=== PATIENT | female | born 1990 | race Caucasian/White ===

== ENCOUNTER 2016-08-19 21:18 | Emergency (ER) | payer OTHER ==
--- NOTE | 2016-08-19 21:56 | ED ---
ENT HPI - General Chief complaint: Dental/Oral Stated complaint: dental pain Time Seen by Provider: 08/19/16 21:43 Source: RN notes reviewed, old records reviewed - History of Present Illness Initial comments: This is a 26 year old female with CC of chronic right lower dental pain. PAtient states that she has multiple dental caries, and problems with tooth 30 frequently. She reports over the past 6 months she has been off and on antibiotics for dental abscess, and reports she plans to get her tooth removed when she can afford it. She reports this pain has been worse for the past day at work. She tried oragel, and taking motrin. Little relief of pain. Denies fever, chills, or inability to open or close jaw, chest pain, dysphagia, shortness of breath, nausea, vomting, abdominal pain, neck pain. - Related Data Home Medications Medication Instructions Recorded Confirmed Ibuprofen [Motrin] 600 mg PO Q8HR PRN 08/19/16 08/19/16 Previous Rx's Medication Instructions Recorded HYDROcodone/APAP 5-325MG [[place] 1 tab PO Q6HR PRN #12 tab 08/19/16 5-325] Penicillin V Potassium [Pen Vee K] 500 mg PO QID #40 tab 08/19/16 Allergies Allergy/AdvReac Type Severity Reaction Status Date / Time No Known Allergies Allergy Verified 08/19/16 21:58 Review of Systems ROS Statement: Those systems with pertinent positive or pertinent negative responses have been documented in the HPI. ROS Other: All systems not noted in ROS Statement are negative. Past Medical History Past Medical History: No Reported History History of Any Multi-Drug Resistant Organisms: MRSA Date of last positivie culture/infection: 2010 MDRO Source:: buttocks Past Surgical History: No Surgical Hx Reported Past Psychological History: Anxiety, Depression Smoking Status: Current every day smoker Past Alcohol Use History: Occasional General Exam - General Exam Comments Initial Comments: Frank 26 year old female, no distress. General appearance: alert, in no apparent distress Head exam: Present: atraumatic, normocephalic, normal inspection Eye exam: Present: normal appearance, PERRL, EOMI. Absent: scleral icterus, conjunctival injection, periorbital swelling ENT exam: Present: normal exam, mucous membranes moist. Absent: normal oropharynx (dental carries, chipped tooth 30) Neck exam: Present: normal inspection. Absent: tenderness, meningismus, lymphadenopathy Respiratory exam: Present: normal lung sounds bilaterally. Absent: respiratory distress, wheezes, rales, rhonchi, stridor Cardiovascular Exam: Present: regular rate, normal rhythm, normal heart sounds. Absent: systolic murmur, diastolic murmur, rubs, gallop, clicks GI/Abdominal exam: Present: soft, normal bowel sounds. Absent: distended, tenderness, guarding, rebound, rigid Extremities exam: Present: normal inspection, full ROM, normal capillary refill. Absent: tenderness, pedal edema, joint swelling, calf tenderness Back exam: Present: normal inspection Neurological exam: Present: alert, oriented X3, CN II-XII intact Psychiatric exam: Present: normal affect, normal mood Skin exam: Present: warm, dry, intact, normal color. Absent: rash Course Vital Signs 08/19/16 21:55 Temperature 98.2 F Pulse Rate 89 Respiratory 20 Rate Blood Pressure 120/68 O2 Sat by Pulse 99 Oximetry Medical Decision Making - Medical Decision Making This is a 26 year old female with CC of chronic right lower dental pain. PAtient states that she has multiple dental caries, and problems with tooth 30 frequently. She reports over the past 6 months she has been off and on antibiotics for dental abscess, and reports she plans to get her tooth removed when she can afford it. She reports this pain has been worse for the past day at work. She tried oragel, and taking motrin. Little relief of pain. Denies fever, chills, or inability to open or close jaw, chest pain, dysphagia, shortness of breath, nausea, vomting, abdominal pain, neck pain. Patient has inflammed gums and chipped tooth 30. Multiple dental caries. Patient given referral for dentist, and given PenVK and pain medication. Advised importance of follow up, patient understands treatment plan and will comply. Disposition Clinical Impression: Pain, dental Disposition: HOME SELF-CARE Condition: Good Instructions: Dental Abscess (ED) Additional Instructions: [facility] [id number] , [place] [address] [phone] (existing clients only) For new clients: [phone] 1st consult: $50 (includes Xrays) Usually 30% less then private dentist for visits after. [employer] [facility] [employer] Have to pay $50 for Xrays anmd rest is covered. [phone] Prescriptions: HYDROcodone/APAP 5-325MG [[place] 5-325] 1 tab PO Q6HR PRN #12 tab PRN Reason: Pain Penicillin V Potassium [Pen Vee K] 500 mg PO QID #40 tab Referrals: Torey Alejo MD [Primary Care Provider] - 1-2 days Time of Disposition: 21:55
[2016-08-19 21:58] VITALS: BP 120/68; PULSE 89; RESP 20; TEMP 98.2
== END 2016-08-19 22:05 | disposition home or self-care (01) ==
LOC: EC 21:18
DX: K08.89 Other specified disorders of teeth and supporting structures (principal); F17.200 Nicotine dependence, unspecified, uncomplicated
CPT/HCPCS: 99282

== ENCOUNTER 2017-07-28 10:05 | Emergency (ER) | payer OTHER ==
[2017-07-28 10:33] VITALS: BP 120/72; PULSE 78; RESP 18; TEMP 98.2
[2017-07-28] MEDS ORDERED: PENICILLIN VK 500MG STARTER 4 TAB BTL PO STA (10:46)
[2017-07-28] MEDS ORDERED: HYDROcodone/APAP 7.5-325MG 1 EACH TAB PO ONE (10:46)
--- NOTE | 2017-07-28 10:48 | ED ---
ENT HPI - General Chief complaint: Dental/Oral Stated complaint: Broken tooth Time Seen by Provider: 07/28/17 10:44 Source: patient, RN notes reviewed Mode of arrival: ambulatory Limitations: no limitations - History of Present Illness Initial comments: 27-year-old female presents emergency Department with chief complaint of dental pain. Patient states she's had a bad tooth that she is known about states that she's had some discomfort has been controlled with Tylenol Motrin up until last night she's had severe left lower throbbing pain. Patient reports no fever no chills mild facial swelling. She has an appointment in 10 days with oral surgery. Patient denies any known ALLERGIES. Denies any sore throat difficulty swallowing. - Related Data Home Medications Medication Instructions Recorded Confirmed Ibuprofen [Motrin] 600 mg PO Q8HR PRN 08/19/16 08/19/16 Previous Rx's Medication Instructions Recorded HYDROcodone/APAP 5-325MG [[place] 1 tab PO Q6HR PRN #12 tab 08/19/16 5-325] Penicillin V Potassium [Pen Vee K] 500 mg PO QID #40 tab 08/19/16 Hydrocodone/Acetaminophen [[place] 1 tab PO Q6HR PRN #12 tab 07/28/17 5-325] Ibuprofen [Motrin] 600 mg PO Q8HR PRN #30 tab 07/28/17 Penicillin V Potassium [Pen Vee K] 500 mg PO QID #40 tablet 07/28/17 Allergies Allergy/AdvReac Type Severity Reaction Status Date / Time No Known Allergies Allergy Verified 08/19/16 21:58 Review of Systems ROS Statement: Those systems with pertinent positive or pertinent negative responses have been documented in the HPI. ROS Other: All systems not noted in ROS Statement are negative. Past Medical History Past Medical History: No Reported History History of Any Multi-Drug Resistant Organisms: MRSA Date of last positivie culture/infection: 2010 MDRO Source:: buttocks Past Surgical History: No Surgical Hx Reported Past Psychological History: Anxiety, Depression Smoking Status: Current every day smoker Past Alcohol Use History: Occasional General Exam Limitations: no limitations General appearance: alert, in no apparent distress Head exam: Present: atraumatic, normocephalic, normal inspection Eye exam: Present: normal appearance, PERRL, EOMI. Absent: scleral icterus, conjunctival injection, periorbital swelling ENT exam: Present: mucous membranes moist, TM's normal bilaterally, normal external ear exam. Absent: normal oropharynx (Dental fracture left lower no drainable abscess) Neck exam: Present: normal inspection, full ROM. Absent: tenderness, meningismus, lymphadenopathy Respiratory exam: Present: normal lung sounds bilaterally. Absent: respiratory distress, wheezes, rales, rhonchi, stridor Cardiovascular Exam: Present: regular rate, normal rhythm, normal heart sounds. Absent: systolic murmur, diastolic murmur, rubs, gallop, clicks Course Vital Signs 07/28/17 10:23 Temperature 98.2 F Pulse Rate 78 Respiratory 18 Rate Blood Pressure 120/72 O2 Sat by Pulse 100 Oximetry Medical Decision Making - Medical Decision Making 27-year-old female presented for dental pain. Patient has no dental abscess though she's had increased pain concern for dental infection. She has an appointment with oral surgery. She'll be given pain medication, antibiotics she is advised to have recheck in 48 hours or return for any worsening symptoms. Disposition Clinical Impression: Fracture of tooth, Toothache Disposition: HOME SELF-CARE Condition: Stable Instructions: Toothache (ED) Additional Instructions: Please return to the Emergency Department if symptoms worsen or any other concerns. Prescriptions: Hydrocodone/Acetaminophen [[place] 5-325] 1 tab PO Q6HR PRN #12 tab PRN Reason: Pain Ibuprofen [Motrin] 600 mg PO Q8HR PRN #30 tab PRN Reason: Pain Penicillin V Potassium [Pen Vee K] 500 mg PO QID #40 tablet Is patient prescribed a controlled substance at d/c from ED?: Yes If prescribed controlled substance>3 days was MAPS reviewed?: No When asked, does pt state using other controlled substances?: No Referrals: Torey Alejo MD [Primary Care Provider] - 1-2 days Time of Disposition: 10:48
== END 2017-07-28 11:10 | disposition home or self-care (01) ==
LOC: EC 10:05
DX: S02.5XXA Fracture of tooth (traumatic), initial encounter for closed fracture (principal); F17.200 Nicotine dependence, unspecified, uncomplicated; Z86.14 Personal history of Methicillin resistant Staphylococcus aureus infection; X58.XXXA Exposure to other specified factors, initial encounter
CPT/HCPCS: 99283

== ENCOUNTER 2018-08-27 22:00 | Outpatient (CLI) | payer OTHER ==
[2018-08-27 22:38] LABS: Appearance,Urine Cloudy (Clear); Bilirubin,Urine Negative (Negative); Blood,Urine Negative (Negative); Color,Urine Yellow; Glucose,Urine (UA) Negative (Negative); Ketones,Urine 1+ (Negative); Leukocyte Esterase,Urine Negative (Negative); Mucus,Urine Many /hpf; Nitrite,Urine Negative (Negative); Protein,Urine 1+ (Negative); RBC,Urine 6 /hpf (0-5); Specific Gravity,Urine 1.031 (1.001-1.035); Squamous Epithelial Cell,Urine 5 /hpf (0-4); WBC,Urine 4 /hpf (0-5)
[2018-08-27 22:57] VITALS: BP 125/71; PULSE 87; RESP 18; TEMP 97.1
--- NOTE | 2018-08-31 16:05 | P.MSEPDOC ---
Presenting Problems - Arrival Data Date of Arrival on Unit: 08/27/18 Time of Arrival on Unit: 22:00 Mode of Transport: Ambulatory - Complaint OB-Reason for Admission/Chief Complaint: Pain Comment: Pt complains of abdominal pain/tightness and vaginal pressure/shooting vaginal pain. Pt rates it 06/25. Medical History - Information : 4 Para: 2 Term: 2 : 0 Abortions: Spontaneous or Elective: 1 Number of Living Children: 2 - Gestational Age Gestational Age by SABRA (wks/days): 22 Weeks and 5 Days - History Comment: EIF on left ventricle on first US. high risk US did not see EIF. Review of Systems - Review of Systems Constitutional: No problems Breast: No problems ENT: No problems Cardiovascular: No problems Respiratory: No problems Gastrointestinal: No problems Genitourinary: No problems Musculoskeletal: No problems Neurological: No problems Skin: No problems Vital Signs - Temperature Temperature: 97.1 F Temperature Source: Temporal Artery Scan - Pulse Right Pulse Oximetery Pulse Rate: 87 Pulse Assessment Method: Automatic Cuff - Respirations Respiratory Rate: 18 Oxygen Delivery Method: Room Air O2 Sat by Pulse Oximetry: 100 - Blood Pressure Right Arm Blood Pressure: 125/71 Blood Pressure Mean: 89 Blood Pressure Source: Automatic Cuff Medical Screen Scoring (Pre) - Cervical Exam Dilation: Exam Deferred Effacement: Exam Deferred Membranes: Intact - Uterine Contractions Frequency: N/A Duration: N/A Intensity: N/A - Maternal Vital Signs Maternal Temperature: N/A Maternal Blood Pressure: N/A Signs of Preeclampsia: N/A Maternal Respirations: N/A - Assessment - Baby A Baseline FHR: 145 Heart Rate - NICHD Category: Category I (Normal) = 0 Position: N/A Station: N/A - Total Score - Baby A Total Score - Baby A: 0 - Total Score - Baby B Total Score - Baby B: 0 - Total Score - Baby C Total Score - Baby C: 0 - Level of Risk - Baby A Level of Risk - Baby A: Low (0-5) - Level of Risk - Baby B Level of Risk - Baby B: Low (0-5) - Level of Risk - Baby C Level of Risk - Baby C: Low (0-5) Physician Notification (Pre) - Physician Notified Physician Notified Date: 08/27/18 Physician Notified Time: 22:46 Physician/Practitioner Notifed:: Juan Spoke With: Juan New Order Received: Yes (discharge pt with instructions to increase water intake) Disposition - Disposition OB Disposition: Discharge to home Discharge Date: 08/27/18 Discharge Time: 22:52 I agree with the RN Medical Screening Exam: Yes Risk & Benefit of care provided described in d/c instruction: Yes Diagnosis: FALSE LABOR BEFORE 37 COMPLETED WEEKS OF GEST, SECOND TRI
== END 2018-08-27 22:52 | disposition home or self-care (01) ==
LOC: FBPOP 22:00
PROVIDERS: ATTEND Obstetrics & Gynecology
DX: O47.02 False labor before 37 completed weeks of gestation, second trimester (principal); Z3A.22 22 weeks gestation of pregnancy
CPT/HCPCS: 81001; G0463; 99213

== ENCOUNTER 2021-11-25 11:16 | Inpatient (IN) | payer MEDICAID, OTHER ==
--- NOTE | 2021-11-25 14:50 | ED ---
Psych HPI - General Chief Complaint: Psychiatric Symptoms Stated Complaint: mental health Time Seen by Provider: 11/25/21 12:23 Source: patient, RN notes reviewed Mode of arrival: ambulatory Limitations: no limitations - History of Present Illness Initial Comments: This a 31-year-old female presents emergency Department chief complaint of depression. Patient states that she was intoxicated while taking care of her kids other morning. Patient states that she is overwhelmed with stress, depression that she is advised to come evaluated and treated by her CPS worker. Patient denies illicit drug use does admit to occasional alcohol use denies a physical complaints no recent medication changes. - Related Data Home Medications Medication Instructions Recorded Confirmed Pnv No.95/Ferrous Fum/Folic AC 1 each PO DAILY 08/27/18 08/27/18 [ Multivitamin Tablet] Allergies Allergy/AdvReac Type Severity Reaction Status Date / Time No Known Allergies Allergy Verified 11/25/21 11:20 Review of Systems ROS Statement: Those systems with pertinent positive or pertinent negative responses have been documented in the HPI. ROS Other: All systems not noted in ROS Statement are negative. Past Medical History Past Medical History: No Reported History History of Any Multi-Drug Resistant Organisms: MRSA Date of last positivie culture/infection: 2010 MDRO Source:: buttocks, Right upper thigh Past Surgical History: No Surgical Hx Reported Past Psychological History: Anxiety, Depression Smoking Status: Current every day smoker Past Alcohol Use History: Occasional Past Drug Use History: None Reported General Exam Limitations: no limitations General appearance: alert, in no apparent distress Head exam: Present: atraumatic, normocephalic, normal inspection Eye exam: Present: normal appearance, PERRL, EOMI. Absent: scleral icterus, conjunctival injection, periorbital swelling ENT exam: Present: normal exam, normal oropharynx, mucous membranes moist Neck exam: Present: normal inspection, full ROM. Absent: tenderness, meningismus, lymphadenopathy Respiratory exam: Present: normal lung sounds bilaterally. Absent: respiratory distress, wheezes, rales, rhonchi, stridor Cardiovascular Exam: Present: regular rate, normal rhythm, normal heart sounds. Absent: systolic murmur, diastolic murmur, rubs, gallop, clicks Neurological exam: Present: alert, oriented X3, CN II-XII intact Skin exam: Present: warm, dry, intact, normal color. Absent: rash Course Vital Signs 11/25/21 11:20 Temperature 98.3 F Pulse Rate 99 Respiratory 18 Rate Blood Pressure 137/73 O2 Sat by Pulse 98 Oximetry Medical Decision Making - Medical Decision Making Patient reevaluated by EPS case discussed with psychiatry patient be admitted for psychiatric treatment. Disposition Clinical Impression: Depression, Suicidal ideation Disposition: TRANSFER TO PSYCH HOSP/UNIT Condition: Stable Referrals: None,Stated [Primary Care Provider] - 1-2 days Time of Disposition: 14:50
[2021-11-25 14:56] LABS: HCT 40.5 % (34.0-46.0); HGB 13.5 gm/dL (11.4-16.0); MCH 31.5 pg (25.0-35.0); MCHC 33.4 g/dL (31.0-37.0); MCV 94.3 fL (80.0-100.0); Mean Platelet Volume 8.6; Platelet Count 173 k/uL (150-450); RBC 4.29 m/uL (3.80-5.40); WBC 4.1 k/uL (3.8-10.6)
[2021-11-25 15:05] LABS: ALT 11 U/L (4-34); AST 19 U/L (14-36); African American GFR (CKD) >90 (>60 ml/min/1.73 sqM); Albumin 4.9 g/dL (3.5-5.0); Alkaline Phosphatase 57 U/L (38-126); Anion Gap 12 mmol/L; Blood Urea Nitrogen 16 mg/dL (7-17); Calcium 8.9 mg/dL (8.4-10.2); Carbon Dioxide 25 mmol/L (22-30); Chloride 103 mmol/L (98-107); Glucose 79 mg/dL (74-99); Non-African American GFR(CKD) >90 (>60 ml/min/1.73 sqM); Potassium 3.6 mmol/L (3.5-5.1); Sodium 140 mmol/L (137-145); Total Bilirubin 0.8 mg/dL (0.2-1.3); Total Protein 7.3 g/dL (6.3-8.2)
[2021-11-25 15:11] LABS: Appearance,Urine Clear (Clear); Bacteria,Urine Rare /hpf; Bilirubin,Urine 1+ (Negative); Blood,Urine Moderate (Negative); Color,Urine Yellow; Glucose,Urine (UA) Negative (Negative); Ketones,Urine Negative (Negative); Leukocyte Esterase,Urine Trace (Negative); Mucus,Urine Moderate /hpf; Nitrite,Urine Negative (Negative); Protein,Urine Trace (Negative); RBC,Urine 12 /hpf (0-5); Specific Gravity,Urine 1.033 (1.001-1.035); Squamous Epithelial Cell,Urine 4 /hpf (0-4); WBC,Urine 2 /hpf (0-5)
[2021-11-25 15:19] LABS: Amphetamine Screen,Urine Detected (NotDetected); Barbiturate Screen,Urine Not Detected (NotDetected); Benzodiazepines Screen,Urine Not Detected (NotDetected); Cocaine Screen,Urine Not Detected (NotDetected); Methadone Screen, Urine Not Detected (NotDetected); Opiate Screen,Urine Not Detected (NotDetected); Oxycodone Screen, Urine Not Detected (NotDetected); Phencyclidine Screen,Urine Not Detected (NotDetected); Tricyclic Antidepressant,Urine Not Detected (NotDetected); Urn Cannabinoid Scrn Detected (NotDetected)
[2021-11-25] MEDS ORDERED: NICOTINE 14MG/24HR PATCH TRANSDERM STA (21:33)
[2021-11-25] MEDS ORDERED: LORazepam 1 MG TAB PO STA (22:18)
[2021-11-26] MEDS ORDERED: LORazepam 1 MG TAB PO STA (18:40)
[2021-11-26] MEDS ORDERED: NICOTINE 21MG/24HR PATCH TRANSDERM STA (18:45)
[2021-11-27] MEDS ORDERED: LORazepam 1 MG TAB PO STA (00:26)
[2021-11-27] MEDS ORDERED: MAGNESIUM HYDROXIDE 2,400 MG/10 ML CUP PO PRN (14:51)
[2021-11-27] MEDS ORDERED: ACETAMINOPHEN TAB 325 MG TAB PO PRN (14:51)
[2021-11-27] MEDS ORDERED: MAG HYDROX/AL HYDROX/SIMETH 30 ML CUP PO PRN (14:51)
[2021-11-27] MEDS ORDERED: traZODone HCL 50 MG TAB PO PRN (14:53)
[2021-11-27] MEDS ORDERED: LORazepam 2 MG/ML INJ IM PRN (14:53)
[2021-11-27 15:48] VITALS: RESP 16
[2021-11-27] MEDS: LORazepam 1 MG TAB PO PRN ×2 (16:59→23:14)
[2021-11-27] MEDS: BENZTROPINE MESYLATE 0.5 MG TAB PO SCH (20:39)
[2021-11-27] MEDS: ARIPiprazole 15 MG TAB PO SCH (20:39)
--- NOTE | 2021-11-28 03:49 | P.CONS ---
History of Present Illness - Reason for Consult Consult date: 11/28/21 - History of Present Illness The patient is a 31-year-old female with a PMH of anxiety and depression who had presented to the emergency room with complaints of depression. The patient was admitted to the mental health unit where she was seen and evaluated. The patient reports that she has been under a tremendous amount of stress recently and that she has been having a difficult time coping. She does report smoking h chcf pack of cigarettes daily but denied any illicit substance or alcohol use. She denied any additional chronic medical conditions and had no active complaints at time of interview. Denied experiencing chest discomfort, shortness of breath, fever, chills, cough, nausea, vomiting, abdominal pain, d iarrhea. Urine tox cause was positive for marijuana. Review of systems: Pertinent positives and negatives as discussed in HPI, a complete review of systems was performed and all other systems are negative. Physical examination: General: non toxic, no distress, appears at stated age, normal weight Derm: no unusual rashes/lesions, no unusual ecchymoses, warm, dry Head: atraumatic, normocephalic, symmetric Eyes: EOMI, no lid lag, anicteric sclera ENT: Nose and ears atraumatic, no thrush, no pharyngeal erythema Neck: trachea midline, supple Mouth: no lip lesion, mucus membranes moist Cardiovascular: S1S2 reg, no murmur, no edema Lungs: CTA bilateral, no rhonchi, no rales , no accessory muscle use Abdominal: soft, nontender to palpation, no guarding Ext: no gross muscle atrophy, no contractures, Neuro: No gross focal neuro deficits noted Psych: Alert, oriented, appropriate affect Assessment/plan Marijuana abuse -Advised on importance of cessation Depression -As per psychiatry Thank you for allowing us to participate in the care of this patient. We will follow peripherally. Do not hesitate to contact us with questions. Someone can be reached from the [facility] hospitalist group at all hours of the day at [phone]. Past Medical History Past Medical History: No Reported History History of Any Multi-Drug Resistant Organisms: MRSA Year Discovered:: 2010 MDRO Source:: buttocks, Right upper thigh Past Surgical History: No Surgical Hx Reported Past Anesthesia/Blood Transfusion Reactions: No Reported Reaction Past Psychological History: Anxiety, Depression Smoking Status: Current every day smoker Past Alcohol Use History: Rare Past Drug Use History: None Reported - Past Family History Mother Family Medical History: Congestive Heart Failure (CHF), Hypertension Additional Family Medical History / Comment(s): pt's mother passed from CHF in 2009. pt's mother also has psychiatric history of bipolar disorder. Medications and Allergies Home Medications Medication Instructions Recorded Confirmed Type ARIPiprazole [Abilify] 15 mg PO BID 11/25/21 11/25/21 History Benztropine Mesylate [Cogentin] 0.5 mg PO BID 11/25/21 11/25/21 History Dextroamphetamine/Amphetamine 20 mg PO TID 11/25/21 11/25/21 History [Adderall 20 mg Tablet] [place] 0.35mg 1 tab PO DAILY 11/25/21 11/25/21 History traZODone HCL [Desyrel] 25 - 50 mg PO HS 11/25/21 11/25/21 History Allergies Allergy/AdvReac Type Severity Reaction Status Date / Time No Known Allergies Allergy Verified 11/25/21 16:21 Physical Exam Vitals: Vital Signs Temp Pulse Pulse Resp BP BP Pulse Ox 11/27/21 15:27 98.5 F 102 H 16 128/61 99 11/27/21 15:06 99.1 F 80 18 110/74 98 Intake and Output 11/27/21 11/27/21 11/28/21 14:59 22:59 06:59 Other: Weight 53.184 kg Results CBC & Chem 7: 11/25/21 14:49 11/25/21 14:49
[2021-11-28] MEDS: NICOTINE 21MG/24HR PATCH TRANSDERM SCH (08:39)
[2021-11-28] MEDS: BENZTROPINE MESYLATE 0.5 MG TAB PO SCH (08:40)
[2021-11-28] MEDS: ARIPiprazole 15 MG TAB PO SCH (08:40)
[2021-11-28] MEDS: SHAROBEL PO SCH (08:41)
[2021-11-28] MEDS ORDERED: SERTRALINE 50 MG TAB PO STA (10:14)
[2021-11-28] MEDS ORDERED: NALTREXONE HCL 50 MG TAB PO STA (10:15)
--- NOTE | 2021-11-28 12:51 | P.HP ---
Psychiatric H&P - . H&P Date: 11/28/21 History & Physical: Allergies Allergy/AdvReac Type Severity Reaction Status Date / Time No Known Allergies Allergy Verified 11/25/21 16:21 Vital Signs Temp 98.0 F 11/28/21 06:07 Pulse 76 11/28/21 06:07 Resp 16 11/28/21 06:07 BP 111/66 11/28/21 06:07 Pulse Ox 97 11/28/21 06:07 FiO2 Intake & Output 11/27/21 11/28/21 11/28/21 18:59 06:59 18:59 Weight 53.184 kg Laboratory Last Values WBC 4.1 k/uL (3.8-10.6) 11/25/21 14:49 RBC 4.29 m/uL (3.80-5.40) 11/25/21 14:49 Hgb 13.5 gm/dL (11.4-16.0) 11/25/21 14:49 Hct 40.5 % (34.0-46.0) 11/25/21 14:49 MCV 94.3 fL (80.0-100.0) 11/25/21 14:49 MCH 31.5 pg (25.0-35.0) 11/25/21 14:49 MCHC 33.4 g/dL (31.0-37.0) 11/25/21 14:49 RDW 12.0 % (11.5-15.5) 11/25/21 14:49 Plt Count 173 k/uL (150-450) 11/25/21 14:49 MPV 8.6 11/25/21 14:49 Sodium 140 mmol/L (137-145) 11/25/21 14:49 Potassium 3.6 mmol/L (3.5-5.1) 11/25/21 14:49 Chloride 103 mmol/L (98-107) 11/25/21 14:49 Carbon Dioxide 25 mmol/L (22-30) 11/25/21 14:49 Anion Gap 12 mmol/L 11/25/21 14:49 BUN 16 mg/dL (7-17) 11/25/21 14:49 Creatinine 0.65 mg/dL (0.52-1.04) 11/25/21 14:49 Est GFR (CKD-EPI)AfAm >90 (>60 ml/min/1.73 sqM) 11/25/21 14:49 Est GFR (CKD-EPI)NonAf >90 (>60 ml/min/1.73 sqM) 11/25/21 14:49 Glucose 79 mg/dL (74-99) 11/25/21 14:[address] Glu mg/dL 101 11/25/21 14:49 Hemoglobin A1c 5.1 % (0.0-6.0) 11/25/21 14:49 Calcium 8.9 mg/dL (8.4-10.2) 11/25/21 14:49 Total Bilirubin 0.8 mg/dL (0.2-1.3) 11/25/21 14:49 AST 19 U/L (14-36) 11/25/21 14:49 ALT 11 U/L (4-34) 11/25/21 14:49 Alkaline Phosphatase 57 U/L (38-126) 11/25/21 14:49 Total Protein 7.3 g/dL (6.3-8.2) 11/25/21 14:49 Albumin 4.9 g/dL (3.5-5.0) 11/25/21 14:49 TSH 0.719 mIU/L (0.465-4.680) 11/25/21 14:49 Urine Color Yellow 11/25/21 14:49 Urine Appearance Clear (Clear) 11/25/21 14:49 Urine pH 6.0 (5.0-8.0) 11/25/21 14:49 Ur Specific [place] 1.033 (1.001-1.035) 11/25/21 14:49 Urine Protein Trace (Negative) H 11/25/21 14:49 Urine Glucose (UA) Negative (Negative) 11/25/21 14:49 Urine Ketones Negative (Negative) 11/25/21 14:49 Urine Blood Moderate (Negative) H 11/25/21 14:49 Urine Nitrite Negative (Negative) 11/25/21 14:49 Urine Bilirubin 1+ (Negative) H 11/25/21 14:49 Urine Urobilinogen 2.0 mg/dL (<2.0) 11/25/21 14:49 Ur Leukocyte Esterase Trace (Negative) H 11/25/21 14:49 Urine RBC 12 /hpf (0-5) H 11/25/21 14:49 Urine WBC 2 /hpf (0-5) 11/25/21 14:49 Ur Squamous Epith Cells 4 /hpf (0-4) 11/25/21 14:49 Urine Bacteria Rare /hpf (None) H 11/25/21 14:49 Urine Mucus Moderate /hpf (None) H 11/25/21 14:49 Urine HCG, Qual Not Detected (Not Detectd) 11/25/21 14:49 Urine Opiates Screen Not Detected (NotDetected) 11/25/21 14:49 Ur Oxycodone Screen Not Detected (NotDetected) 11/25/21 14:49 Urine Methadone Screen Not Detected (NotDetected) 11/25/21 14:49 Ur Propoxyphene Screen Not Detected (NotDetected) 11/25/21 14:49 Ur Barbiturates Screen Not Detected (NotDetected) 11/25/21 14:49 U Tricyclic Antidepress Not Detected (NotDetected) 11/25/21 14:49 Ur Phencyclidine Scrn Not Detected (NotDetected) 11/25/21 14:49 Ur Amphetamines Screen Detected (NotDetected) H 11/25/21 14:49 U Methamphetamines Scrn Not Detected (NotDetected) 11/25/21 14:49 U Benzodiazepines Scrn Not Detected (NotDetected) 11/25/21 14:49 Urine Cocaine Screen Not Detected (NotDetected) 11/25/21 14:49 U Marijuana (THC) Screen Detected (NotDetected) H 11/25/21 14:49 Coronavirus (PCR) Not Detected (Not Detectd) 11/25/21 14:49 11/28/21 12:51 IDENTIFYING DATA: Patient is a , employed, 31-year-old female with significant history of alcohol use disorder who presents to the hospital or worsening depression and suicidal ideation. HPI: Patient presented to the hospital on 11/28/2021, brought into the hospital under petition for mental health treatment. As per petition filled out by the EPS nurse, the patient reported that she had no will to live and just wanted to kill herself. She was subsequently admitted on the psychiatric unit under petition and certification period upon evaluation on the psychiatric unit, the patient reports that she has been feeling increasingly depressed over the past few months. She reports that she has maintained sobriety over the past 5 months however recently relapsed into heavy alcohol use. She reports last , she ingested a bottle of liquor while she was taking care of her 2-year-old. Her partner at that time contacted his counselor who as a mandated urogynecology physician contacted CPS. The patient reports that the CPS worker wants her to go to rehabilitation. The patient reports significant symptoms of depression including decreased energy, decreased will to live, easily frustrated, decreased hygiene and grooming, decreased appetite, poor sleep, hopelessness, helplessness, and excessive guilt. Although she does endorse suicidal thoughts she however denies any intention or plan. She reports no prior attempts at suicide. The patient is not reporting any significant symptoms or history of bipolar disorder. She denies any periods of excessive energy, grandiosity, or mood lability. The patient denies any symptoms or history of psychosis. She reports no auditory or visual hallucinations. She denies any history of paranoia or other delusions. The patient does provide significant history substance abuse. She reports that she began drinking heavily at the age of 15. She reports that at her worst, she was drinking approximately 3 tall boys of beer as well as a pint of liquor per day. She reports that her heaviest drinking occurred in 2019. She does report a history of 3 inpatient rehabilitation stays starting in 2010. She reports the longest. She remains sober was for the past 5 months prior to this relapse. She is currently not open with AA. PAST PSYCHIATRIC HISTORY: Patient states that she has been increasingly diagnosed with bipolar disorder, ADHD, and depression. The patient does report previous trials of Abilify, Adderall, Cogentin, and trazodone. She reports that she is on this regimen by her PA at [facility]. The patient does report one prior inpatient psychiatric admission at [facility] 15 years ago. She also reports previous trials of Cymbalta and Prozac. She denies any prior attempts at suicide. PMH: Past Medical History: No Reported History History of Any Multi-Drug Resistant Organisms: MRSA Year Discovered:: 2010 MDRO Source:: buttocks, Right upper thigh Past Surgical History: No Surgical Hx Reported Past Anesthesia/Blood Transfusion Reactions: No Reported Reaction Past Psychological History: Anxiety, Depression Smoking Status: Current every day smoker Past Alcohol Use History: Rare Past Drug Use History: None Reported ALLERGIES: NO KNOWN DRUG ALLERGIES. CHEMICAL DEPENDENCY HISTORY: Patient reports that she smokes between a half pack per day to 1 pack per day. She reports rare marijuana use. She denies any illicit drug use. Alcohol use as per HPI. FAMILY PSYCHIATRIC/SUBSTANCE USE HISTORY: She reports that her mother has major depressive disorder and alcohol use disorder. SOCIAL HISTORY: Patient was born and raised in [place], [place]. She currently lives with her son's father. She has been since 2016. 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 She has 3 children ages 2, 8, and 10 years old. She is a high school graduate. MENTAL STATUS EXAM: General Appearance: Patient appears to be stated age is alert, directable, and attempts to cooperate. Patient appears to have fair hygiene and grooming. Short cut hair. Colorful clothes. Behavior: Patient is seated without any agitated behavior. Eye contact is appropriate. Speech: Patient's speech is fluent and nonpressured. Monotone but spontaneous. Mood/Affect: Patient reports their mood is depressed, affect is congruent and constricted. Suicidality/Homicidality: Patient denies having any homicidal ideation intent or plan. Patient endorses suicidal ideation however no intention or plan. Perceptions: Patient denies any visual hallucinations and denies any auditory hallucinations Though content/process: There is no evidence of any delusional thought content and thought process is linear and goal-directed. Memory and concentration: AOX3, grossly intact for the purposes of this session. Can spell "WORLD" backwards Judgment and insight: Fair STRENGTHS/WEAKNESSES: strength is that patient is resilient. Weakness is that patient engages in heavy alcohol use. INTELLECT: average IMPRESSIONS: Major depressive disorder, recurrent, severe Alcohol use disorder Tobacco use disorder PLAN: -Patient is admitted under voluntary status to MHU for stabilization of psychiatric symptoms and safety. Patient signed adult voluntary form and medication consent and is placed in patient's chart. -Medications : Will start patient on Zoloft 50 mg by mouth daily for depression/anxiety with plans to titrate to 100 mg tomorrow Increase trazodone 200 mg daily at bedtime for insomnia -Ativan and Haldol PRN for agitation/aggression -Patient was counselled on substance abuse and desired to cut back on use -Patient was informed of the risks, benefits and side effects of the medication and patient verbally consented to taking the medications. Patient signed med consent form and was placed in chart. -Internal Medicine consult to perform medical evaluation and physical. -NRT - nicotine patch -SW on board for discharge planning. Encourage patient to participate in groups to work on coping skills. 11/28/21 12:51
[2021-11-28 13:30] LABS: LDL Cholesterol,Calculated 84.1 mg/dL (0.0-131.0)
[2021-11-28] MEDS ORDERED: LORATADINE 10 MG TAB PO PRN (13:46)
[2021-11-28 16:09] VITALS: BMI 18.9
[2021-11-28] MEDS: LORazepam 1 MG TAB PO PRN (16:56)
[2021-11-28] MEDS ORDERED: diphenhydrAMINE 50 MG CAP PO STA (19:12)
[2021-11-28] MEDS ORDERED: traZODone HCL 100 MG TAB PO SCH (21:00)
[2021-11-28] MEDS ORDERED: diphenhydrAMINE 50 MG CAP PO ONE (22:00)
[2021-11-29] MEDS ORDERED: SERTRALINE 50 MG TAB PO ONE (09:00)
[2021-11-29] MEDS ORDERED: SERTRALINE 100 MG TAB PO SCH (09:00)
[2021-11-29] MEDS: NICOTINE 21MG/24HR PATCH TRANSDERM SCH (09:34)
[2021-11-29] MEDS: SHAROBEL PO SCH ×2 (10:03→10:16)
[2021-11-29] MEDS ORDERED: NALTREXONE HCL 50 MG TAB PO STA (11:44)
--- NOTE | 2021-11-29 11:47 | P.PN ---
Progress Note - Text Progress Note Date: 11/29/21 Interval History: Patient was seen resting in bed and was directable and agreeable to speak with health underwriter in her room. Currently, the patient is not reporting any suicidal or homicidal ideation, intention, and/or plan. She is not reporting any auditory or visual hallucinations. She denies any paranoia or other delusions. The patient has been adherent with her medications however reports that she is feeling increasingly restless with occasional restless leg throughout the day. The patient also reports elevated anxiety. She continues to report alcohol cravings. She is however happy with the addition of naltrexone and appears to be tolerating the medication well otherwise. The patient denies any issues regarding her appetite however states that sleep has been poor. Mental Status Exam: General Appearance: Patient appears to be stated age is alert, directable, and cooperative. Behavior: Patient is calmly seated without any agitated behavior. Speech: Patient's speech is fluent and nonpressured. Mood/Affect: Mood is improving mildly, affect is congruent and constricted. Suicidality/Homicidality: Patient denies having any suicidal or homicidal ideation intent or plan. Perceptions: Patient denies any visual hallucinations and denies any auditory hallucinations Though content/process: There is no evidence of any delusional thought content and thought process is linear and goal-directed. Memory and concentration: AOX3, grossly intact for the purposes of this session Judgment and insight: Improving mildly Vital Signs Temp 98.0 F 11/28/21 06:07 Pulse 76 11/28/21 06:07 Resp 16 11/28/21 06:07 BP 111/66 11/28/21 06:07 Pulse Ox 97 11/28/21 06:07 FiO2 Intake & Output 11/28/21 11/29/21 11/29/21 18:59 06:59 18:59 Weight 53.184 kg Laboratory Results - Last 24 Hours 11/25/21 14:49 Triglycerides 90.50 Cholesterol 166.00 LDL Cholesterol, Calc 84.1 VLDL Cholesterol, Calc 18.10 HDL Cholesterol 63.80 H Cholesterol/HDL Ratio 2.60 Assessment Major depressive disorder, recurrent, severe Alcohol use disorder Tobacco use disorder Plan: -Patient continues to meet criteria for inpatient psychiatric admission for symptom stabilization and safety. Patient has signed adult voluntary form and medication consent and was placed in patient's chart. -Medications: Increase Zoloft to 100 mg by mouth daily for depression/anxiety Increase trazodone to 200 mg by mouth at bedtime for insomnia Continue naltrexone 50 mg by mouth daily for alcohol use disorder -When necessary Ativan and Haldol for agitation/aggression. -NRT - nicotine patch -SW on board for discharge planning. Encouraged the patient to participate in milieu.
[2021-11-29] MEDS ORDERED: traZODone HCL 100 MG TAB PO SCH (21:00)
[2021-11-30 06:49] VITALS: BP 121/67; PULSE 85; TEMP 98.1
[2021-11-30] MEDS ORDERED: NALTREXONE HCL 50 MG TAB PO SCH (09:00)
[2021-11-30] MEDS ORDERED: SERTRALINE 100 MG TAB PO SCH (09:00)
[2021-11-30] MEDS: NICOTINE 21MG/24HR PATCH TRANSDERM SCH (09:16)
[2021-11-30] MEDS: SHAROBEL PO SCH (09:16)
--- NOTE | 2021-11-30 11:39 | P.DS ---
Providers Date of admission: 11/27/21 14:41 Expected date of discharge: 11/30/21 Attending physician: Clement Hendrickson MD Consults: 11/27/21 14:51 Consult Physician Routine Consulting Provider: [facility] Consult Reason/Comments: H&P and medical Do you want consulting provider notified?: Yes Primary care physician: Stated None - Discharge Diagnosis(es) (1) Major depressive disorder, recurrent, severe without psychotic features Current Visit: Yes Status: Acute Priority: High (2) Alcohol use disorder Current Visit: Yes Status: Chronic Priority: Medium (3) Tobacco use disorder Current Visit: Yes Status: Chronic Priority: Medium Hospital Course: Admission HPI: Patient is a , employed, 31-year-old female with significant history of alcohol use disorder who presents to the hospital or worsening depression and suicidal ideation. Patient presented to the hospital on 11/28/2021, brought into the hospital under petition for mental health treatment. As per petition filled out by the EPS nurse, the patient reported that she had no will to live and just wanted to kill herself. She was subsequently admitted on the psychiatric unit under petition and certification period upon evaluation on the psychiatric unit, the patient reports that she has been feeling increasingly depressed over the past few months. She reports that she has maintained sobriety over the past 5 months however recently relapsed into heavy alcohol use. She reports last , she ingested a bottle of liquor while she was taking care of her 2-year-old. Her partner at that time contacted his counselor who as a mandated professional employer consultant contacted C[employer]. The patient reports that the CPS worker wants her to go to rehabilitation. The patient reports significant symptoms of depression including decreased energy, decreased will to live, easily frustrated, decreased hygiene and grooming, decreased appetite, poor sleep, hopelessness, helplessness, and excessive guilt. Although she does endorse suicidal thoughts she however denies any intention or plan. She reports no prior attempts at suicide. The patient is not reporting any significant symptoms or history of bipolar disorder. She denies any periods of excessive energy, grandiosity, or mood lability. The patient denies any symptoms or history of psychosis. She reports no auditory or visual hallucinations. She denies any history of paranoia or other delusions. The patient does provide significant history substance abuse. She reports that she began drinking heavily at the age of 15. She reports that at her worst, she was drinking approximately 3 tall boys of beer as well as a pint of liquor per day. She reports that her heaviest drinking occurred in 2019. She does report a history of 3 inpatient rehabilitation stays starting in 2010. She reports the longest. She remains sober was for the past 5 months prior to this relapse. She is currently not open with AA. Patient states that she has been increasingly diagnosed with bipolar disorder, ADHD, and depression. The patient does report previous trials of Abilify, Adderall, Cogentin, and trazodone. She reports that she is on this regimen by her PA at [facility]. The patient does report one prior inpatient psy chiatric admission at [facility] 15 years ago. She also reports previous trials of Cymbalta and Prozac. She denies any prior attempts at suicide. Hospital course: Upon admission to the unit patient was initially presenting as depressed with suicidal ideation. Patient was however directable and agreeable to commence treatment. Patient got along well with other patients on the unit and followed unit protocol. Patient was compliant with the medications and denied any side effects throughout hospital course. Patient was started on Zoloft and trazodone for management of her depression as well as naltrexone for alcohol use disorder. Patient spoke of her stressors and engaged in therapy both group and individual. Patient was also seen by medical team for history and physical exam. Throughout the course of the hospitalization patient gradually improved with regards to her mood, appetite, sleep and became future oriented with improved insight and judgment. On the day of discharge patient denied any suicidal or homicidal ideations intent or plan denied any auditory or visual hallucinations. Patient endorsed wanting to live for her health and family. The patient denied any access to guns or weapons. Patient denied any paranoia and did not endorse any delusions. Patient does have a significant history of substance abuse however was counseled on abstaining from all substances in cluding alcohol and marijuana. Patient plans to go to inpatient substance abuse rehabilitation in the near future. She was also counseled on her naltrexone and to follow up with her primary care physician on her liver enzymes. Patient was also counseled on the medications and need for regular compliance and was encouraged to follow-up with their outpatient appointment for mental health and also for primary care. Prior to discharge a family meeting will be arranged by social scientist to answer any questions and ensure safety upon discharge. Mental status exam: General Appearance: Patient appears to be stated age is alert, pleasant, and cooperative. Patient is in no acute distress and has fair hygiene and grooming Behavior: Patient is calmly seated without any agitated behavior. Speech: Patient's speech is fluent and nonpressured. Mood/Affect: Patient reports their mood is "good", affect is congruent and euthymic to bright. Suicidality/Homicidality: Patient denies having any suicidal or homicidal ideation intent or plan. Perceptions: Patient denies any auditory or visual hallucinations. Though content/process: There is no evidence of any delusional thought content and thought process is linear and goal-directed. She is future oriented. Memory and concentration: AOX3, grossly intact for the purposes of this session. Can spell "WORLD" backwards correctly. Judgment and insight: Improved with guarded prognosis Impression: Major depressive disorder, recurrent, severe Alcohol use disorder Tobacco use disorder Plan: -Continue with discharge today as patient has improved and stabilized psychiatrically and is not currently an imminent threat to self and/or others. Patient will remain at chronically elevated risk for harm to self and/or others due to her alcohol use disorder. -Continue medications: Trazodone 100 mg by mouth at bedtime for insomnia Habitrol patches for nicotine cessation ReVia 50 mg by mouth daily for alcohol cessation Zoloft 100 mg by mouth daily for depression/anxiety -Patient was counseled on the need for medication compliance and appropriate follow-up at mental health and also primary care for medical issues. Patient verbalized understanding and agreed. -Social work to arrange for and conduct family meeting to ensure safety upon discharge and answer any questions/concerns. Social work also to arrange for patients follow up appointments with [facility] for psychiatric care along with follow up with primary care provider. -Patient counseled on abstaining from recreational drugs and marijuana and alcohol. Was informed/educated on the adverse effects on their physical and mental health. Patient verbally agreed and understood. Patient plans to go to inpatient substance abuse rehabilitation in the near future. -Patient was instructed to return to the hospital or seek immediate medical care if their psychiatric or medical symptoms do worsen or reoccur. -Psychoeducation and supportive therapy provided to patient. Risks and benefits of pharmacological treatment versus the risks and benefits of nontreatment weight and discussed. Informed consent discussion held. Common side effects of psychotropics discussed such as, but not limited to headache, GI disturbance, sexual dysfunction, movement disorders, sedation, and orthostatic hypotension. Life threatening and blackbox warnings of prescribed medications also discussed. Potential risks of operating a vehicle or heavy machinery discussed with patient at length. Advised on importance of compliance and a reliable and responsible manner. Patient advised to review FDA consumer labeling of all medications prior to taking. Patient verbalized understanding of potential risks, and agrees with current treatment plan. Patient advised to medically contact physician/emergency personnel if any acute changes in condition occur. Vital Signs Temp 98.1 F 11/30/21 06:48 Pulse 85 11/30/21 06:48 Resp 16 11/30/21 06:48 BP 121/67 11/30/21 06:48 Pulse Ox 98 11/30/21 06:48 FiO2 Laboratory Results WBC 4.1 k/uL (3.8-10.6) 11/25/21 14:49 RBC 4.29 m/uL (3.80-5.40) 11/25/21 14:49 Hgb 13.5 gm/dL (11.4-16.0) 11/25/21 14:49 Hct 40.5 % (34.0-46.0) 11/25/21 14:49 MCV 94.3 fL (80.0-100.0) 11/25/21 14:49 MCH 31.5 pg (25.0-35.0) 11/25/21 14:49 MCHC 33.4 g/dL (31.0-37.0) 11/25/21 14:49 RDW 12.0 % (11.5-15.5) 11/25/21 14:49 Plt Count 173 k/uL (150-450) 11/25/21 14:49 MPV 8.6 11/25/21 14:49 Sodium 140 mmol/L (137-145) 11/25/21 14:49 Potassium 3.6 mmol/L (3.5-5.1) 11/25/21 14:49 Chloride 103 mmol/L (98-107) 11/25/21 14:49 Carbon Dioxide 25 mmol/L (22-30) 11/25/21 14:49 Anion Gap 12 mmol/L 11/25/21 14:49 BUN 16 mg/dL (7-17) 11/25/21 14:49 Creatinine 0.65 mg/dL (0.52-1.04) 11/25/21 14:49 Est GFR (CKD-EPI)AfAm >90 (>60 ml/min/1.73 sqM) 11/25/21 14:49 Est GFR (CKD-EPI)NonAf >90 (>60 ml/min/1.73 sqM) 11/25/21 14:49 Glucose 79 mg/dL (74-99) 11/25/21 14:[address] Glu mg/dL 101 11/25/21 14:49 Hemoglobin A1c 5.1 % (0.0-6.0) 11/25/21 14:49 Calcium 8.9 mg/dL (8.4-10.2) 11/25/21 14:49 Total Bilirubin 0.8 mg/dL (0.2-1.3) 11/25/21 14:49 AST 19 U/L (14-36) 11/25/21 14:49 ALT 11 U/L (4-34) 11/25/21 14:49 Alkaline Phosphatase 57 U/L (38-126) 11/25/21 14:49 Total Protein 7.3 g/dL (6.3-8.2) 11/25/21 14:49 Albumin 4.9 g/dL (3.5-5.0) 11/25/21 14:49 Triglycerides 90.50 mg/dL (0.00-149.00) 11/25/21 14:49 Cholesterol 166.00 mg/dL (0.00-200.00) 11/25/21 14:49 LDL Cholesterol, Calc 84.1 mg/dL (0.0-131.0) 11/25/21 14:49 VLDL Cholesterol, Calc 18.10 mg/dL (5.00-40.00) 11/25/21 14:49 HDL Cholesterol 63.80 mg/dL (40.00-60.00) H 11/25/21 14:49 Cholesterol/HDL Ratio 2.60 Ratio 11/25/21 14:49 TSH 0.719 mIU/L (0.465-4.680) 11/25/21 14:49 Urine Color Yellow 11/25/21 14:49 Urine Appearance Clear (Clear) 11/25/21 14:49 Urine pH 6.0 (5.0-8.0) 11/25/21 14:49 Ur Specific [place] 1.033 (1.001-1.035) 11/25/21 14:49 Urine Protein Trace (Negative) H 11/25/21 14:49 Urine Glucose (UA) Negative (Negative) 11/25/21 14:49 Urine Ketones Negative (Negative) 11/25/21 14:49 Urine Blood Moderate (Negative) H 11/25/21 14:49 Urine Nitrite Negative (Negative) 11/25/21 14:49 Urine Bilirubin 1+ (Negative) H 11/25/21 14:49 Urine Urobilinogen 2.0 mg/dL (<2.0) 11/25/21 14:49 Ur Leukocyte Esterase Trace (Negative) H 11/25/21 14:49 Urine RBC 12 /hpf (0-5) H 11/25/21 14:49 Urine WBC 2 /hpf (0-5) 11/25/21 14:49 Ur Squamous Epith Cells 4 /hpf (0-4) 11/25/21 14:49 Urine Bacteria Rare /hpf (None) H 11/25/21 14:49 Urine Mucus Moderate /hpf (None) H 11/25/21 14:49 Urine HCG, Qual Not Detected (Not Detectd) 11/25/21 14:49 Urine Opiates Screen Not Detected (NotDetected) 11/25/21 14:49 Ur Oxycodone Screen Not Detected (NotDetected) 11/25/21 14:49 Urine Methadone Screen Not Detected (NotDetected) 11/25/21 14:49 Ur Propoxyphene Screen Not Detected (NotDetected) 11/25/21 14:49 Ur Barbiturates Screen Not Detected (NotDetected) 11/25/21 14:49 U Tricyclic Antidepress Not Detected (NotDetected) 11/25/21 14:49 Ur Phencyclidine Scrn Not Detected (NotDetected) 11/25/21 14:49 Ur Amphetamines Screen Detected (NotDetected) H 11/25/21 14:49 U Methamphetamines Scrn Not Detected (NotDetected) 11/25/21 14:49 U Benzodiazepines Scrn Not Detected (NotDetected) 11/25/21 14:49 Urine Cocaine Screen Not Detected (NotDetected) 11/25/21 14:49 U Marijuana (THC) Screen Detected (NotDetected) H 11/25/21 14:49 Coronavirus (PCR) Not Detected (Not Detectd) 11/25/21 14:49 Allergies Allergy/AdvReac Type Severity Reaction Status Date / Time No Known Allergies Allergy Verified 11/25/21 16:21 Patient Condition at Discharge: Stable Plan - Discharge Summary Discharge Rx Participant: No New Discharge Prescriptions: New traZODone HCL [Desyrel] 100 mg PO HS 30 Days tab Nicotine 21Mg/24Hr Patch [Habitrol] 1 patch TRANSDERM DAILY 30 Days patch Naltrexone HCl [Revia] 50 mg PO DAILY 30 Days tab Sertraline [Zoloft] 100 mg PO DAILY 30 Days tab Continue Sharobel 0.35mg 1 tab PO DAILY Dextroamphetamine/Amphetamine [Adderall 20 mg Tablet] 20 mg PO TID Discontinued Benztropine Mesylate [Cogentin] 0.5 mg PO BID ARIPiprazole [Abilify] 15 mg PO BID traZODone HCL [Desyrel] 25 - 50 mg PO HS Discharge Medication List Dextroamphetamine/Amphetamine [Adderall 20 mg Tablet] 20 mg PO TID 11/25/21 [History] Sharobel 0.35mg 1 tab PO DAILY 11/25/21 [History] Naltrexone HCl [Revia] 50 mg PO DAILY 30 Days tab 11/30/21 [Rx] Nicotine 21Mg/24Hr Patch [Habitrol] 1 patch TRANSDERM DAILY 30 Days patch 11/30/21 [Rx] Sertraline [Zoloft] 100 mg PO DAILY 30 Days tab 11/30/21 [Rx] traZODone HCL [Desyrel] 100 mg PO HS 30 Days tab 11/30/21 [Rx] Follow up Appointment(s)/Referral(s): [facility] [Other] - 1 Week Chris Swartz [Other] - 1 Week Patient Instructions/Handouts: How to Stop Smoking (DC), Depression (DC) Activity/Diet/Wound Care/Special Instructions: Avoid the use of street drugs and alcohol. Take all prescriptions as prescribed. When you are in need of refills on your medications, please contact your medical provider and/or outpatient psychiatrist to have this done. Please go to scheduled outpatient appointment for aftercare treatment. If symptoms return or become worse, call the crisis line at and/or go to the nearest emergency room for evaluation. Discharge Disposition: HOME SELF-CARE
[2021-11-30] MEDS ORDERED: traZODone HCL 100 MG TAB PO SCH (21:00)
== END 2021-11-30 13:37 | disposition home or self-care (01) | DRG 885 ==
LOC: EC 11:16 → 3MHU 11-27 14:41
PROVIDERS: ADMIT Psychiatry & Neurology Psychiatry; ATTEND Psychiatry & Neurology Psychiatry
DX: F33.2 Major depressive disorder, recurrent severe without psychotic features (principal); R45.851 Suicidal ideations; F10.10 Alcohol abuse, uncomplicated; G25.81 Restless legs syndrome; F41.9 Anxiety disorder, unspecified; F17.210 Nicotine dependence, cigarettes, uncomplicated; F90.9 Attention-deficit hyperactivity disorder, unspecified type; G47.00 Insomnia, unspecified; Z20.822 Contact with and (suspected) exposure to COVID-19; Z86.14 Personal history of Methicillin resistant Staphylococcus aureus infection; Z79.899 Other long term (current) drug therapy; Z65.3 Problems related to other legal circumstances; Z82.49 Family history of ischemic heart disease and other diseases of the circulatory system; Z81.8 Family history of other mental and behavioral disorders
CPT/HCPCS: 36415; 80053; 80061; 80306; 81001; 81025; 82075; 83036; 84443; 85027; 87635; 99284

== ENCOUNTER 2024-09-23 18:50 | Emergency (ER) | payer OTHER ==
[2024-09-23 19:40] LABS: Basophils # (A) 0.04 10*3/uL (0.00-0.10); Basophils % (A) 0.9 %; Eosinophils # (A) 0.05 10*3/uL (0.04-0.35); Eosinophils % (A) 1.1 %; HCT 39.0 % (37.2-46.3); HGB 13.0 g/dL (12.0-15.0); Lymphocytes # (A) 1.25 10*3/uL (0.90-5.00); Lymphocytes % (A) 27.4 %; MCH 30.0 pg (27.0-32.0); MCHC 33.3 g/dL (32.0-37.0); MCV 90.1 fL (80.0-97.0); Monocytes # (A) 0.41 10*3/uL (0.20-1.00); Monocytes % (A) 9.0 %; Neutrophils # (A) 2.81 10*3/uL (1.80-7.70); Neutrophils % (A) 61.4 %; Platelet Count 197 10*3/uL (140-440); RBC 4.33 10*6/uL (4.10-5.20); RDW 12.3 % (11.5-14.5); WBC 4.57 10*3/uL (4.50-10.00)
[2024-09-23 19:51] LABS: ALT 18 U/L (4-34); AST 26 U/L (14-36); African American GFR (CKD) >90 (>60 ml/min/1.73 sqM); Albumin 5.0 g/dL (3.5-5.0); Alkaline Phosphatase 60 U/L (38-126); Anion Gap 15 mmol/L; Blood Urea Nitrogen 12 mg/dL (7-17); Calcium 9.7 mg/dL (8.4-10.2); Carbon Dioxide 22 mmol/L (22-30); Chloride 106 mmol/L (98-107); Glucose 100 mg/dL (74-99); Non-African American GFR(CKD) >90 (>60 ml/min/1.73 sqM); Potassium 3.8 mmol/L (3.5-5.1); Sodium 143 mmol/L (137-145); Total Protein 7.8 g/dL (6.3-8.2)
[2024-09-23 20:04] LABS: Bacteria,Urine Rare /hpf; Bilirubin,Urine Negative (Negative); Blood,Urine Small (Negative); Color,Urine Colorless; Glucose,Urine (UA) Negative (Negative); Ketones,Urine Negative (Negative); Leukocyte Esterase,Urine Negative (Negative); Nitrite,Urine Negative (Negative); PH, Urine 6.5 (5.0-8.0); Protein,Urine Negative (Negative); RBC,Urine 1 /hpf (0-5); Specific Gravity,Urine 1.002 (1.001-1.035); Squamous Epithelial Cell,Urine 1 /hpf (0-4); Urobilinogen,Urine <2.0 mg/dL (<2.0); WBC,Urine 5 /hpf (0-5)
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
[2024-09-23] MEDS: LORazepam 1 MG TAB PO STA (20:43)
[2024-09-23 20:59] VITALS: BP 124/79; PULSE 85; RESP 22; TEMP 97.9
== END 2024-09-23 20:59 | disposition home or self-care (01) ==
LOC: EC 18:50
DX: F10.139 Alcohol abuse with withdrawal, unspecified (principal); F17.200 Nicotine dependence, unspecified, uncomplicated; Y90.9 Presence of alcohol in blood, level not specified
CPT/HCPCS: 36415; 80053; 81001; 83605; 85025; 99284